=== PATIENT | male | born 1960 | race Caucasian/White ===

== ENCOUNTER 2024-04-10 15:06 | Inpatient (IN) | payer OTHER ==
[2024-04-10] MEDS ORDERED: BISMUTH SUBSALICYLATE 524 MG/30 ML PO PRN (19:14)
[2024-04-10] MEDS ORDERED: NALOXONE (NYS OPIOID OVERDOSE PROGRAM) 4 MG/0.1 ML SPRAY NS PRN (19:14)
[2024-04-10] MEDS ORDERED: NICOTINE POLACRILEX 2 MG LOZENGE BC PRN (19:14)
[2024-04-10] MEDS ORDERED: ONDANSETRON *ODT* 4 MG TABLET SL PRN (19:14)
[2024-04-10] MEDS ORDERED: NALOXONE (NARCAN) HCL 4 MG/0.1 ML SPRAY NS PRN (19:14)
[2024-04-10] MEDS ORDERED: BENZONATATE 200 MG CAPSULE PO PRN (19:14)
[2024-04-10] MEDS ORDERED: NICOTINE POLACRILEX 2 MG GUM BUC PRN (19:14)
[2024-04-10] MEDS ORDERED: MAG HYDROX/AL HYDROX/SIMETH 30 ML UNIT-DOSE CUP PO PRN (19:14)
[2024-04-10] MEDS ORDERED: BENZOCAINE/MENTHOL (CHLORASEPTIC ) LOZENGE MM PRN (19:14)
[2024-04-10] MEDS ORDERED: IBUPROFEN 600 MG TABLET (FP) PO PRN (19:14)
[2024-04-10] MEDS ORDERED: LOPERAMIDE HCL 2 MG CAPSULE PO PRN (19:14)
[2024-04-10] MEDS ORDERED: ACETAMINOPHEN 325 MG TABLET (FP) PO PRN (19:14)
[2024-04-10] MEDS ORDERED: IBUPROFEN 400 MG TABLET (FP) PO PRN (19:14)
[2024-04-10] MEDS ORDERED: POLYETHYLENE GLYCOL (HEALTHYLAX) 3350 17 GM PACKET PO PRN (19:14)
[2024-04-10] MEDS ORDERED: DICYCLOMINE HCL 10 MG CAPSULE PO PRN (19:14)
[2024-04-10] MEDS ORDERED: MAGNESIUM HYDROX 2400MG/30ML ORAL SUSPENSION 30 ML CUP PO PRN (19:14)
[2024-04-10] MEDS ORDERED: hydrOXYzine PAMOATE 25 MG CAPSULE (FP) PO ONE (19:44)
[2024-04-10 19:47] VITALS: BMI 23.4
[2024-04-10] MEDS: hydrOXYzine PAMOATE 25 MG CAPSULE (FP) PO PRN (19:50)
[2024-04-10] MEDS: MELATONIN 5 MG TABLETS PO SCH (22:40)
[2024-04-10] MEDS: THIAMINE 100 MG TABLET PO SCH (22:41)
[2024-04-11] MEDS ORDERED: NITROGLYCERIN SUBLINGUAL 1/150 0.4 MG TAB SL PRN (07:26)
[2024-04-11] MEDS: ASPIRIN 325 MG ENTERIC COATED TABLET (FP) PO SCH (10:22)
[2024-04-11] MEDS: CLOPIDOGREL BISULFATE 75 MG TABLET (FP) PO SCH (10:23)
[2024-04-11] MEDS: NALTREXONE HCL 50 MG TABLET PO ONE (10:23)
[2024-04-11] MEDS: PRENATAL VITAMINS W/ FOLIC ACID TABLET (FP) PO SCH (10:23)
[2024-04-11] MEDS: METOPROLOL TARTRATE 25 MG TABLET (FP) PO SCH (10:23)
[2024-04-11] MEDS: diazePAM 5 MG TABLET PO SCH (10:23)
[2024-04-11 11:17] LABS: HEMATOCRIT 43.8 % (35.4-49); HEMOGLOBIN 14.3 GM/dL (11.7-16.9); MCH 29.7 pg (25.7-33.7); MCHC 32.7 g/dl (32.0-35.9); MEAN PLT VOLUME 10.1 fl (7.5-11.1); PLATELET COUNT 212 10^3/uL (134-434); RBC 4.81 M/mm3 (4.00-5.60); RDW 13.2 % (11.9-15.9)
[2024-04-11 11:31] LABS: CHLORIDE 110 mmol/L (98-107); POTASSIUM 4.1 mmol/L (3.5-5.1); SODIUM 140 mmol/L (136-145)
[2024-04-11 11:33] LABS: CALCIUM 9.2 mg/dL (8.5-10.1)
[2024-04-11 11:34] LABS: ANION GAP 6 mmol/L (4-13); BLOOD UREA NITROGEN 11.2 mg/dL (7-18); CO2 25 mmol/L (21-32); GLUCOSE,RANDOM 85 mg/dL (74-106)
[2024-04-11 11:37] LABS: SGOT/AST 16 U/L (15-37); SGPT/ALT 24 U/L (13-61)
[2024-04-11 11:38] LABS: BILIRUBIN,TOTAL 0.2 mg/dL (0.2-1); TOT PROT 6.3 g/dl (6.4-8.2)
[2024-04-11 11:40] LABS: ALK PHOS 114 U/L (45-117)
[2024-04-11 13:17] LABS: HIV INTERPRETATION NEGATIVE (NEGATIVE)
[2024-04-11] MEDS: METHOCARBAMOL 500 MG TABLET PO PRN (17:34)
[2024-04-11] MEDS: ATORVASTATIN CA 80 MG TABLET (FP) PO SCH (22:23)
[2024-04-11] MEDS: MIRTAZAPINE 15 MG TABLET (FP) PO SCH (22:23)
[2024-04-12] MEDS: NALTREXONE HCL 50 MG TABLET PO SCH (11:06)
[2024-04-12] MEDS: FLU VACCINE (FLULAVAL) PF 45 MCG/0.5 ML SYRINGE 2024-2025 IM ONE (11:49)
[2024-04-12] MEDS: PNEUMOC 20-VAL CONJ-DIP CRM/PF 0.5 ML SYRINGE IM ONE (11:50)
[2024-04-12] MEDS: diazePAM 5 MG TABLET PO PRN (14:51)
[2024-04-12] MEDS: P-EPHED 60MG/TRIPROLIDI 2.5MG TABLET PO PRN (14:52)
[2024-04-12] MEDS: guaiFENesin 600 MG TABLET.ER (FP) PO PRN (19:35)
[2024-04-13] MEDS: diazePAM 5 MG TABLET PO SCH (06:11)
[2024-04-14] MEDS: diazePAM 5 MG TABLET PO SCH (05:35)
[2024-04-14 05:52] VITALS: RESP 16
[2024-04-14 09:04] VITALS: BP 109/78; PULSE 90; TEMP 97.7
[2024-04-14 11:32] LABS: BASO % 0.4 % (0-2.0); EOS % 3.9 % (0-4.5); HEMATOCRIT 45.4 % (35.4-49); HEMOGLOBIN 14.6 GM/dL (11.7-16.9); LYMPH % 31.2 % (8-40); MCH 29.6 pg (25.7-33.7); MCHC 32.1 g/dl (32.0-35.9); MEAN CELL VOLUME 92.1 fl (80-96); MEAN PLT VOLUME 9.8 fl (7.5-11.1); MONO % 11.9 % (3.8-10.2); NEUT % 52.6 % (42.8-82.8); PLATELET COUNT 226 10^3/uL (134-434); RBC 4.92 M/mm3 (4.00-5.60); RDW 13.3 % (11.9-15.9)
[2024-04-14 11:39] LABS: CALCIUM 9.3 mg/dL (8.5-10.1)
[2024-04-14 11:40] LABS: BLOOD UREA NITROGEN 9.4 mg/dL (7-18)
[2024-04-14 11:42] LABS: CREATININE 0.9 mg/dL (0.55-1.3)
[2024-04-14 11:44] LABS: BILIRUBIN,TOTAL 0.2 mg/dL (0.2-1); TOT PROT 6.2 g/dl (6.4-8.2)
[2024-04-15] MEDS ORDERED: diazePAM 5 MG TABLET PO ONE (06:00)
== END 2024-04-14 12:59 | disposition home or self-care (01) | DRG 774 ==
LOC: YASAS 15:06 → Y3N 19:54
PROVIDERS: ADMIT Allergy & Immunology; ATTEND Surgery
PROC: HZ2ZZZZ Detoxification Services for Substance Abuse Treatment (ICD-10-PCS; principal; 2024-04-10)
DX: F10.230 Alcohol dependence with withdrawal, uncomplicated (principal); F14.20 Cocaine dependence, uncomplicated; F17.210 Nicotine dependence, cigarettes, uncomplicated; G31.9 Degenerative disease of nervous system, unspecified; G47.00 Insomnia, unspecified; I25.118 Atherosclerotic heart disease of native coronary artery with other forms of angina pectoris; I10 Essential (primary) hypertension; I25.2 Old myocardial infarction; Z95.5 Presence of coronary angioplasty implant and graft
CPT/HCPCS: 36415; 80053; 80305; 80307; 85025; 85027; 86780; 86803; 87389; 93005; 93010

== ENCOUNTER 2024-07-26 13:10 | Inpatient (IN) | payer OTHER ==
[2024-07-26 14:27] VITALS: BMI 24.0
[2024-07-26] MEDS ORDERED: ONDANSETRON *ODT* 4 MG TABLET SL PRN (15:34)
[2024-07-26] MEDS ORDERED: NICOTINE POLACRILEX 2 MG GUM BUC PRN (15:34)
[2024-07-26] MEDS ORDERED: hydrOXYzine PAMOATE 25 MG CAPSULE (FP) PO PRN (15:34)
[2024-07-26] MEDS ORDERED: MAG HYDROX/AL HYDROX/SIMETH 30 ML UNIT-DOSE CUP PO PRN (15:34)
[2024-07-26] MEDS ORDERED: BISMUTH SUBSALICYLATE 524 MG/30 ML PO PRN (15:34)
[2024-07-26] MEDS ORDERED: MAGNESIUM HYDROX 2400MG/30ML ORAL SUSPENSION 30 ML CUP PO PRN (15:34)
[2024-07-26] MEDS ORDERED: chlordiazePOXIDE HCL 25 MG CAPSULE PO PRN (15:34)
[2024-07-26] MEDS ORDERED: NALOXONE (NARCAN) HCL 4 MG/0.1 ML SPRAY NS PRN (15:34)
[2024-07-26] MEDS ORDERED: IBUPROFEN 400 MG TABLET (FP) PO PRN (15:34)
[2024-07-26] MEDS ORDERED: IBUPROFEN 600 MG TABLET (FP) PO PRN (15:34)
[2024-07-26] MEDS ORDERED: LOPERAMIDE HCL 2 MG CAPSULE PO PRN (15:34)
[2024-07-26] MEDS ORDERED: POLYETHYLENE GLYCOL (HEALTHYLAX) 3350 17 GM PACKET PO PRN (15:34)
[2024-07-26] MEDS ORDERED: NITROGLYCERIN SUBLINGUAL 1/150 0.4 MG TAB SL PRN (15:48)
[2024-07-26] MEDS ORDERED: chlordiazePOXIDE HCL 25 MG CAPSULE ONE (16:47)
[2024-07-26] MEDS: chlordiazePOXIDE HCL 25 MG CAPSULE PO SCH (16:48)
[2024-07-26] MEDS: NALTREXONE HCL 50 MG TABLET PO ONE (17:37)
[2024-07-26] MEDS: DICYCLOMINE HCL 10 MG CAPSULE PO PRN (19:35)
[2024-07-26] MEDS: BENZONATATE 200 MG CAPSULE PO PRN (19:35)
[2024-07-26] MEDS: METHOCARBAMOL 500 MG TABLET PO PRN (19:35)
[2024-07-26] MEDS ORDERED: SERTRALINE HCL 50 MG TABLET (FP) PO SCH (22:00)
[2024-07-26] MEDS ORDERED: RANOLAZINE E.R. 500 MG TABLET (FP) PO SCH (22:00)
[2024-07-26] MEDS: METOPROLOL TARTRATE 25 MG TABLET (FP) PO SCH (22:30)
[2024-07-26] MEDS: THIAMINE 100 MG TABLET PO SCH (22:30)
[2024-07-26] MEDS: MIRTAZAPINE 15 MG TABLET (FP) PO SCH (22:30)
[2024-07-26] MEDS: ATORVASTATIN CA 80 MG TABLET (FP) PO SCH (22:31)
[2024-07-26] MEDS: MELATONIN 5 MG TABLETS PO SCH (22:31)
[2024-07-26] MEDS: guaiFENesin 600 MG TABLET.ER (FP) PO PRN (22:32)
[2024-07-27] MEDS: ASPIRIN 325 MG ENTERIC COATED TABLET (FP) PO SCH (10:28)
[2024-07-27] MEDS: NALTREXONE HCL 50 MG TABLET PO SCH (10:28)
[2024-07-27] MEDS: CLOPIDOGREL BISULFATE 75 MG TABLET (FP) PO SCH (10:28)
[2024-07-27] MEDS: PRENATAL VITAMINS W/ FOLIC ACID TABLET (FP) PO SCH (10:28)
[2024-07-27] MEDS: NICOTINE 21 MG/24 HOURS TOPICAL PATCH TD SCH (10:28)
[2024-07-27 11:12] LABS: HEMATOCRIT 44.5 % (35.4-49); HEMOGLOBIN 14.9 GM/dL (11.7-16.9); MCH 30.1 pg (25.7-33.7); MCHC 33.6 g/dl (32.0-35.9); MEAN CELL VOLUME 89.6 fl (80-96); PLATELET COUNT 246 10^3/uL (134-434); RBC 4.96 M/mm3 (4.00-5.60); RDW 14.3 % (11.9-15.9); WHITE BLOOD COUNT 8.1 K/mm3 (4.0-10.0)
[2024-07-27 11:17] LABS: CHLORIDE 105 mmol/L (98-107); SODIUM 141 mmol/L (136-145)
[2024-07-27 11:23] LABS: ALBUMIN 2.9 g/dl (3.4-5.0); ANION GAP 5 mmol/L (4-13); BLOOD UREA NITROGEN 14.1 mg/dL (7-18); CO2 30 mmol/L (21-32); GLUCOSE,RANDOM 117 mg/dL (74-106)
[2024-07-27 11:26] LABS: SGOT/AST 31 U/L (15-37); SGPT/ALT 35 U/L (13-61)
[2024-07-27 11:28] LABS: BILIRUBIN,TOTAL 0.6 mg/dL (0.2-1); TOT PROT 6.4 g/dl (6.4-8.2)
[2024-07-27 11:29] LABS: ALK PHOS 108 U/L (45-117)
[2024-07-28] MEDS: chlordiazePOXIDE HCL 25 MG CAPSULE PO SCH (05:27)
[2024-07-29] MEDS ORDERED: chlordiazePOXIDE HCL 10 MG CAPSULE PO PRN
[2024-07-29] MEDS: BENZOCAINE/MENTHOL (CHLORASEPTIC ) LOZENGE MM PRN (04:50)
[2024-07-29] MEDS: chlordiazePOXIDE HCL 10 MG CAPSULE PO SCH (05:29)
[2024-07-29] MEDS: guaiFENesin 200 MG/10 ML 10 ML UNIT-DOSE CUPS PO PRN (14:15)
[2024-07-29] MEDS: ACETAMINOPHEN 325 MG TABLET (FP) PO PRN (22:57)
[2024-07-30] MEDS: chlordiazePOXIDE HCL 10 MG CAPSULE PO SCH (05:42)
[2024-07-30 05:56] VITALS: RESP 16
[2024-07-30 13:16] VITALS: BP 117/74; PULSE 64; TEMP 97.7
[2024-07-31] MEDS ORDERED: chlordiazePOXIDE HCL 10 MG CAPSULE PO ONE (05:00)
== END 2024-07-30 13:08 | disposition home or self-care (01) | DRG 774 ==
LOC: YASAS 13:10 → Y3N 16:44
PROVIDERS: ADMIT Allergy & Immunology; ATTEND Allergy & Immunology
PROC: HZ2ZZZZ Detoxification Services for Substance Abuse Treatment (ICD-10-PCS; principal; 2024-07-25)
DX: F10.230 Alcohol dependence with withdrawal, uncomplicated (principal); F14.20 Cocaine dependence, uncomplicated; F17.210 Nicotine dependence, cigarettes, uncomplicated; F43.10 Post-traumatic stress disorder, unspecified; F32.A Depression, unspecified; I25.118 Atherosclerotic heart disease of native coronary artery with other forms of angina pectoris; I10 Essential (primary) hypertension; I25.2 Old myocardial infarction
CPT/HCPCS: 36415; 80053; 80305; 80307; 85027; 86780; 93005; 93010